=== PATIENT | female | born 1940 | race Caucasian/White ===

== ENCOUNTER 2016-12-19 10:51 | Day surgery (SDC) | payer OTHER ==
[~2016-12-19] VITALS: Ht 160 cm; Wt 90.7 kg
[~2016-12-19 10:51] MED LIST: CARDIZEM CD,CA120 MG PO; CYANOCOBALAM1000 MCG PO; FEMRING1 EACH VG; FLONASE16 G1 BOTH NARES; GABAPENTIN600 MG PO; GLUCOPHAGE XR750 MG PO; HYDROCODON-ACE1 EAC7 PO; HYZAAR 100-21 TABLET PO; LATANOPROST2.5 ML BOTH EYES; LIBRAX, CLI1 CAPSULE PO; LO-DOSE ASPIRIN81 M2 PO; MOTRIN400 MG PO; OMEPRAZOLE40 M1 PO; TYLENOL EXTRA500 MG PO; VITAMIN B-6100 MG PO; VITAMIN D400 UNIT PO
[2016-12-19 11:45] LABS: POINT-OF-CARE METER ID UU14174212
== END 2016-12-19 12:15 | disposition home or self-care (01) ==
LOC: PAIN 10:51 → SDC 11:30 → PAIN 11:30
PROVIDERS: Anesthesiology Pain Medicine
DX: M47.26 Other spondylosis with radiculopathy, lumbar region (principal); M48.06 Spinal stenosis, lumbar region; I10 Essential (primary) hypertension; E78.01 Familial hypercholesterolemia; E11.9 Type 2 diabetes mellitus without complications; R00.0 Tachycardia, unspecified; Z79.82 Long term (current) use of aspirin; Z79.84 Long term (current) use of oral hypoglycemic drugs; Z79.891 Long term (current) use of opiate analgesic; Z80.0 Family history of malignant neoplasm of digestive organs; Z83.3 Family history of diabetes mellitus; Z82.49 Family history of ischemic heart disease and other diseases of the circulatory system; K21.9 Gastro-esophageal reflux disease without esophagitis; Z87.891 Personal history of nicotine dependence
CPT/HCPCS: 82948; J1100; J3010

== ENCOUNTER → 2018-01-30 | Outpatient (CLI) | payer OTHER | END | disposition home or self-care (01) | LOC: CDC 10:04 | DX: Z01.810 Encounter for preprocedural cardiovascular examination (principal); H25.11 Age-related nuclear cataract, right eye | CPT/HCPCS: 93000 ==